=== PATIENT | female | born 1980 | race Caucasian/White ===

== ENCOUNTER 2018-06-30 12:25 | Inpatient (IN) | payer OTHER ==
[~2018-06-30] VITALS: Ht 170.2 cm; Wt 72.1 kg
[2018-06-30 12:28] VITALS: BP 126/79
--- NOTE | 2018-06-30 12:32 | NUR ---
back to er lobby wait for available room for md ramos
--- NOTE | 2018-06-30 12:49 | NUR ---
PT TO ER BED 4
--- NOTE | 2018-06-30 13:04 | NUR ---
c/o left arm pain x >2 months started with paresthesia denies injury/trauma---+2 radial pulse <3 sec cap refill hx--left breast lump (upcoming bx tomorrow) rx---none. PATIENT STATES PAIN OF 10/10 AT THIS TIME; VSS; PATIENT POSITIONED FOR COMFORT; HOB ELEVATED; BEDRAILS UP X2; BED DOWN. ER MD MADE AWARE OF PT STATUS.
--- NOTE | 2018-06-30 13:10 | NUR ---
Patient being evaluated by DR DUEÑAS at bedside.
[2018-06-30] MEDS ORDERED: KETOROLAC 30 MG/ML VIAL IVP ONE (13:30)
[2018-06-30] MEDS ORDERED: LORazepam 2 MG/ML VIAL IVP ONE (13:30)
--- NOTE | 2018-06-30 13:39 | NUR ---
PT TAKEN TO X RAY
--- NOTE | 2018-06-30 13:46 | NUR ---
EKG AT BEDSIDE
[2018-06-30 13:48] LABS: BASOPHILS # (AUTO) 0.1 K/uL (0.00-0.22); BASOPHILS % (AUTO) 0.9 % (0.0-2.0); HEMATOCRIT 38.5 % (36-48); HEMOGLOBIN 12.8 g/dL (12.0-16.0); LYMPHOCYTES # (AUTO) 2.1 K/uL (2.5-16.5); LYMPHOCYTES % (AUTO) 32.5 % (20.5-51.1); MEAN CORPUSCULAR HEMOGLOBIN 28 pg (27-31); MEAN CORPUSCULAR HGB CONC 33 g/dL (33-37); MEAN CORPUSCULAR VOLUME 84.5 fL (80-94); MONOCYTES # (AUTO) 0.3 K/uL (0.8-1.0); MONOCYTES % (AUTO) 4.3 % (1.7-9.3); NEUTROPHILS % (AUTO) 62.3 % (42.2-75.2); PLATELET COUNT (AUTO) 262 K/uL (140-450); RED BLOOD CELL COUNT(AUTO) 4.55 MIL/uL (4.20-5.40); RED CELL DISTRIBUTION WIDTH 14.3 % (11.6-13.7); WHITE BLOOD COUNT (AUTO) 6.5 K/uL (4.8-10.8)
[2018-06-30 13:59] LABS: CREATININE 0.8 mg/dL (0.6-1.3)
[2018-06-30 14:04] LABS: ALBUMIN 3.8 g/dL (3.4-5.0); TOTAL BILIRUBIN 0.2 mg/dL (0.0-1.0)
[2018-06-30 14:23] LABS: D-DIMER < 100 ng/ml (0-400)
--- NOTE | 2018-06-30 14:51 | NUR ---
Patient being reevaluated by DR DUEÑAS at bedside. c/o pain 10/24 at this time
[2018-06-30] MEDS ORDERED: MORPHINE SULFATE 4 MG/ML SYR IVP ONE (14:55)
[2018-06-30] MEDS ORDERED: methylPREDNISolone SS 125 MG/2 ML VIAL IVP ONE (15:30)
[2018-06-30] MEDS ORDERED: diphenhydrAMINE 50 MG/ML VIAL IVP ONE (15:30)
[2018-06-30] MEDS ORDERED: LORazepam 2 MG/ML VIAL IVP PRN (17:00)
[2018-06-30] MEDS ORDERED: ONDANSETRON 4 MG/2 ML VIAL IVP PRN (17:00)
[2018-06-30] MEDS ORDERED: MORPHINE SULFATE 2 MG/ML SYR IVP PRN (17:00)
[2018-06-30] MEDS ORDERED: ALBUTEROL 0.083% 2.5 MG/3 ML NEBU INH PRN (17:00)
--- NOTE | 2018-06-30 18:25 | NUR ---
RECEIVED BEDSIDE REPORT FROM ER NURSE. PATIENT IS AWAKE, ALERT AND ORIENTEDX4. NO SIGNS OF DISTRESS ON RA. SKIN IS INTACT. L BREAST HAS A LUMP SHE HAS A L BREAST BX APPOINTMENT TOMORROW. IV ON L HAND 22 SL. CLEAN, DRY AND INTACT. B/P 121/71 HR 86 98% RA TEMP 98.2 RR 16. PATIENT IS AMBULATORY. CONTINENT. CALL LIGHT WITHIN REACH. BED IN LOW POSITION. WILL CONTINUE TO MONITOR THE PATIENT
--- NOTE | 2018-06-30 18:26 | NUR ---
Patient will be admitted to care of DR FLOR LONG. Admited to TELE. Will go to room 104A . Belongings list completed. Report to MAGGI LITTLEJOHN.
[2018-06-30] MEDS: MORPHINE SULFATE 4 MG/ML SYR IVP PRN ×2 (18:54→22:48)
--- NOTE | 2018-06-30 19:10 | NUR ---
GAVE BEDSIDE REPORT TO DIRECTOR OF STRATEGIC MARKETING NURSE. PATIENT ENDORSED IN STABLE CONDITION
--- NOTE | 2018-06-30 19:33 | NUR ---
RECEIVED BEDSIDE REPORT FROM ER NURSE. PATIENT IS AWAKE, ALERT AND ORIENTEDX4. NO SIGNS OF DISTRESS ON RA. SKIN IS INTACT. L BREAST HAS A LUMP SHE HAS A L BREAST BX APPOINTMENT TOMORROW. IV ON L HAND 22 SL. CLEAN, DRY AND INTACT. B/P 121/71 HR 86 98% RA TEMP 98.2 RR 16. PATIENT IS AMBULATORY. CONTINENT. CALL LIGHT WITHIN REACH. BED IN LOW POSITION. WILL CONTINUE TO MONITOR THE PATIENT Addendum: 06/30/18 at 1940 by Karuna Moeller RN WRONG TIME
--- NOTE | 2018-06-30 19:34 | NUR ---
REPORT RECEIVED FROM AM NURSE AT BEDSIDE. PT IN STABLE CONDITION. AAOX4. INTRODUCED SELF TO PT. BOARD UPDATED. NO COMPLAINTS OF CHEST PAIN. NO SOB. AFEBRILE. IV SITE L HAND 22G SL PATENT AND INTACT. SKIN WARM, DRY, AND INTACT WITH NO OPEN WOUNDS. BED LOCKED IN LOW POSITION. CALL BASS WITHIN REACH. SAFETY PRECAUTIONS IN PLACE. ALL NEEDS MET AT THIS TIME.
[2018-06-30 20:00] VITALS: BP 94/54
--- NOTE | 2018-06-30 21:00 | NUR ---
PT LAYING IN BED. NO S/S OF DISTRESS. NOTED. SAYS HER ARM IS TINGLY BUT NO CHEST PAIN. WILL CONTINUE TO MONITOR.
--- NOTE | 2018-06-30 22:48 | NUR ---
MORPHINE GIVEN FOR 7/10 ARM PAIN. PT TOLERATED WELL.
[2018-07-01] VITALS: BP 107/63
--- NOTE | 2018-07-01 00:30 | NUR ---
PT SLEEPING COMFORTABLY IN BED. NO S/S OF DISTRESS NOTED. NO COMPLAINTS OF PAIN. NO SOB. AFEBRILE. WILL CONTINUE TO MONITOR.
--- NOTE | 2018-07-01 02:45 | NUR ---
PT SLEEPING COMFORTABLY IN BED. NO S/S OF DISTRESS NOTED. RESPIRATIONS EVEN, UNLABORED, AND WNL. WILL CONTINUE TO MONITOR.
[2018-07-01] MEDS: MORPHINE SULFATE 4 MG/ML SYR IVP PRN (03:53)
--- NOTE | 2018-07-01 03:53 | NUR ---
MORPHINE GIVEN FOR 7/10 ARM PAIN. PT TOLERATED WELL.
[2018-07-01 04:00] VITALS: BP 113/64
--- NOTE | 2018-07-01 04:45 | NUR ---
PT UP AND AWAKE WATCHING MOVIES ON HER PHONE. NO S/S OF DISTRESS NOTED. WILL CONTINUE TO MONITOR.
--- NOTE | 2018-07-01 07:05 | NUR ---
REPORT GIVEN TO AM NURSE AT BEDSIDE. PT IN STABLE CONDITION.
--- NOTE | 2018-07-01 07:06 | NUR ---
RECEIVED REPORT FROM WELLNESS NURSE RN RN AT BEDSIDE FOR CONTINUITY OF CARE. PATIENT AOX4, REQUESTING TO GO AMA. RN VERBALIZED UNDERSTANDING. PATIENT DENIES C.P. RESPIRATIONS EVEN AND UNLABORED ON ROOM AIR. IV SITE PATENT INTACT SALINE LOCKED. SAFETY PRECAUTIONS IN PLACE, CALL LIGHT WITHIN REACH, WILL CONTINUE TO MONITOR PATIENT.
--- NOTE | 2018-07-01 07:20 | NUR ---
IV REMOVED, IV CATHETER INTACT, MINIMAL BLEEDING NOTED. VS WNL, PATIENT DENIES CHEST PAIN, NUMBING AND TINGLING ON LEFT ARM. PATIENT SIGNED AMA FORM. STATED THAT SHE HAS A BIOPSY SCHEDULED AT 0900. RN VERBALIZED UNDERSTANDING. TELE MONITOR REMOVED, ID BANDS CUT. PATIENT WILL NOW CHANGE INTO HER OWN CLOTHING TO GO AMA.
--- NOTE | 2018-07-01 07:38 | NUR ---
PATIENT AMBULATED OFF FLOOR WITH RN. PATIENT IN STABLE CONDITION. Addendum: 07/01/18 at 1043 by Kennedy Crane RN PATIENT TOOK ALL HER BELONGINGS WITH HER.
--- NOTE | 2018-07-01 08:12 | NUR ---
PATIENT HAS BEEN SCREENED AND CATEGORIZED LOW NUTRITION RISK. PATIENT WILL BE SEEN WITHIN 7 DAYS OF ADMISSION. 07/07/[address]
[2018-07-01 08:26] LABS: BASOPHILS % (AUTO) 0.2 % (0.0-2.0); HEMOGLOBIN 12.9 g/dL (12.0-16.0); LYMPHOCYTES % (AUTO) 10.7 % (20.5-51.1); MEAN CORPUSCULAR HEMOGLOBIN 28 pg (27-31); MEAN CORPUSCULAR HGB CONC 33 g/dL (33-37); MEAN CORPUSCULAR VOLUME 84.7 fL (80-94); MONOCYTES # (AUTO) 0.2 K/uL (0.8-1.0); MONOCYTES % (AUTO) 2.3 % (1.7-9.3); NEUTROPHILS % (AUTO) 86.8 % (42.2-75.2); PLATELET COUNT (AUTO) 273 K/uL (140-450); RED CELL DISTRIBUTION WIDTH 14.2 % (11.6-13.7); WHITE BLOOD COUNT (AUTO) 9.2 K/uL (4.8-10.8)
[2018-07-01 08:42] LABS: ALBUMIN 3.3 g/dL (3.4-5.0); ANION GAP 13.9 (8-16); CARBON DIOXIDE 25.7 mmol/L (21-32); CREATININE 0.8 mg/dL (0.6-1.3); MAGNESIUM 2.1 mg/dL (1.8-2.4); POTASSIUM 4.6 mmol/L (3.5-5.1); TOTAL BILIRUBIN 0.3 mg/dL (0.0-1.0)
== END 2018-07-01 07:38 | disposition left against medical advice (07) | DRG 203 ==
LOC: MED 12:25 → MTU 17:17
PROVIDERS: ADMIT Internal Medicine Pulmonary Disease; ATTEND Internal Medicine Pulmonary Disease
DX: R07.89 Other chest pain (principal); F17.200 Nicotine dependence, unspecified, uncomplicated; Z53.21 Procedure and treatment not carried out due to patient leaving prior to being seen by health care provider; F41.0 Panic disorder [episodic paroxysmal anxiety]; N63.20 Unspecified lump in the left breast, unspecified quadrant; R20.2 Paresthesia of skin
CPT/HCPCS: 36415; 71045; 80053; 81025; 83735; 83880; 84484; 85025; 85379; 85610; 85730; 87081; 93005; 96374; 96375; 99285; J1200; J1885; J2060; J2270; J2930; J7030

== ENCOUNTER 2018-08-11 14:01 | Emergency (ER) | payer OTHER ==
[~2018-08-11] VITALS: Ht 170.2 cm; Wt 72.6 kg
--- NOTE | 2018-08-11 14:08 | NUR ---
PT AMBULATED TO ER BED 08
[2018-08-11 14:12] VITALS: BP 150/97
--- NOTE | 2018-08-11 14:19 | NUR ---
c/o left burning sharp pain from scapula radiating to finger tips >2 months denies injury--- completed steroid course 1 month ago +2 radial pulse <3 sec cap refill full rom
--- NOTE | 2018-08-11 14:35 | NUR ---
ERMD AT BEDSIDE
[2018-08-11] MEDS ORDERED: KETOROLAC 60 MG/2 ML VIAL IM ONE (14:40)
--- NOTE | 2018-08-11 14:58 | NUR ---
Patient discharged with v/s stable. Written and verbal after care instructions given and explained. Patient alert, oriented and verbalized understanding of instructions. Ambulatory with steady gait. All questions addressed prior to discharge. ID band removed. Patient advised to follow up with PMD. Rx of TRAMADOL & MOTRIN given. Patient educated on indication of medication including possible reaction and side effects. Opportunity to ask questions provided and answered.
== END 2018-08-11 14:58 | disposition home or self-care (01) ==
LOC: MED 14:01
DX: S46.912A Strain of unspecified muscle, fascia and tendon at shoulder and upper arm level, left arm, initial encounter (principal); X58.XXXA Exposure to other specified factors, initial encounter; Y93.89 Activity, other specified; Y92.89 Other specified places as the place of occurrence of the external cause; Y99.8 Other external cause status
CPT/HCPCS: 96372; 99283; J1885